=== PATIENT | male | born 1945 | race Caucasian/White ===

== ENCOUNTER 2019-02-26 12:00 | Observation (INO) | payer OTHER ==
[~2019-02-26] VITALS: Ht 188 cm; Wt 96.1 kg
[2019-03-05 11:42] LABS: CREATININE 0.9 mg/dL (0.5-1.5)
[2019-03-05 11:43] VITALS: BP 152/86
[2019-03-05] MEDS ORDERED: QUET25TA74 PO (12:12)
[2019-03-05] MEDS ORDERED: TYL3 PO (12:12)
[2019-03-06] VITALS (23 sets, daily range): BP systolic 119–173; BP diastolic 69–87
[2019-03-06] MEDS: CEFAZOLIN SODIUM 1 GM VIAL IVP SCH ×3 (06:00→18:13)
[2019-03-06] MEDS ORDERED: LACTATED RINGERS 1000ML 1,000 ML IV ONE ×2 (10:22→16:52)
[2019-03-06] MEDS ORDERED: ROCURONIUM 10MG/1ML SYR 10 MG/ML ML ONE (10:34)
[2019-03-06] MEDS ORDERED: PROPOFOL 10 MG/ML 20ML VIAL IV ONE (10:34)
[2019-03-06] MEDS ORDERED: LIDOCAINE PF 2% 5ML ABBOJECT ONE (10:34)
[2019-03-06] MEDS ORDERED: SUCCINYLCHOLINE 200MG/10ML SYR ONE (10:34)
[2019-03-06] MEDS ORDERED: FENTANYL CITRATE PF 50 MCG/1 ML 5ML AMP IV ONE (10:34)
[2019-03-06] MEDS ORDERED: ROPIVACAINE 0.5% 5MG/ML 30ML IJ ONE (10:35)
[2019-03-06] MEDS ORDERED: MIDAZOLAM HCL 1 MG/ML 2ML VIAL ONE (11:50)
[2019-03-06] MEDS ORDERED: SODIUM CHLORIDE 0.9% 10 ML VIAL ONE (12:20)
[2019-03-06] MEDS ORDERED: PHENYLEPHRINE HCL 10 MG/ML 1ML VIAL IV ONE (12:20)
[2019-03-06] MEDS ORDERED: EPHEDRINE SULFATE 50 MG/ML AMPULE ONE (12:26)
[2019-03-06] MEDS ORDERED: KETOROLAC TROMETHAMINE 30MG/ML ONE ×15 (13:36)
[2019-03-06] MEDS ORDERED: ONDANSETRON HCL 4 MG/2 ML VIAL ONE (13:37)
[2019-03-06 14:30] LABS: HEMATOCRIT 40.9 % (42-54)
--- NOTE | 2019-03-06 16:30 | NUR ---
DR. YADAV PATIENT REPORTS HE LIVES HOME ALONE AND HE NEEDS HELP AFTER DISCHARGE. PATIENT STATES THAT DR. YADAV WAS AWARE OF THIS. DR. TAYLOR' POST-OP ORDERS DO NOT SPECIFY DISCHARGE PLANNING. I CALLED DR. YADAV AND MD STATES "I FORGOT THIS PATIENT WAS ALSO A RECENT LEFT KNEE SURGERY, SO YES HE WILL NEED NURSING FACILITY FOR 3 DAYS, PREFERABLY [facility] SO THEY CAN TAKE PATIENT TO HIS FOLLOW-UP APPOINTMENT NEXT SUNDAY [03/10/19]."
--- NOTE | 2019-03-06 16:58 | NUR ---
CM NOTE DC PLAN TO SNF VS POLY TRAUMA UNIT? CALLED TO NURSING STATION BY PRIMARY RN; STATES PT IS ..INSISTANT.. THAT HE GO TO A SNF OR THE POLY TRAUMA UNIT IN [place] SURGERY TODAY , TKA 12 DAYS AGO BOTH LEFT SIDE, LIVES ALONE, STILL USING WALKER. ORDER OBTAINED BY YOLANDA FROM DR. YADAV FOR SNF,'PERFERABLY IN [facility] FOR FOLLOW UP APPT ON SUNDAY" PT ASKED THAT I TAKE DOWN THE INFO FOR NATURAL RESOURCES TECHNICIAN AT THE [facility] [place]. WILL RELAY TO CM IN AM FOLLOWS MARTINA AIDA, PHONE [phone] FAX [phone] MAIN NUMBER [phone] TRANSPORT BRIEFLY DISCUSSED; PT STATES THAT HE TALKED TO DR. YADAV PRIOR TO THE SURGER ABOUT THIS VERY THING; STATES THAT A REFERRAL FROM [facility] IS ALREADY APPROVED BUT WHEN HE TOURED HE DID NOT LIKE THE FACILITY. - WOULD LIKE TO TRY TO GET INTO THE POLYTRAUMA UNIT
[2019-03-06] MEDS ORDERED: PROMETHAZINE HCL 25 MG/ML 1ML AMPULE IM PRN (17:15)
[2019-03-06] MEDS ORDERED: BISACODYL 10 MG SUPP.RECT RC PRN (17:15)
[2019-03-06] MEDS ORDERED: DEXTROSE 5%-LACTATED RINGERS 1,000 ML IV SCH (17:15)
[2019-03-06] MEDS ORDERED: MAGNESIUM HYDROXIDE 30 ML/UDCUP PO PRN (17:15)
[2019-03-06] MEDS ORDERED: MORPHINE SULFATE 5 MG/ML VIAL IM PRN (17:15)
[2019-03-06] MEDS ORDERED: ACETAMINOPHEN 325 MG TAB PO PRN ×2 (18:15→19:30)
[2019-03-06 18:46] LABS: HEMATOCRIT 41.9 % (42-54)
[2019-03-06] MEDS ORDERED: HYDROCODONE/ACETAMINOPHEN 5/325 MG TAB PO PRN (19:30)
[2019-03-06] MEDS ORDERED: ONDANSETRON HCL 4 MG/2 ML VIAL IV PRN (19:30)
[2019-03-06] MEDS ORDERED: QUETIAPINE FUMARATE 25 MG TAB PO SCH (21:00)
[2019-03-06] MEDS: FAMOTIDINE 20MG TAB 20 MG TAB PO SCH (21:02)
[2019-03-06] MEDS: HYDROCODONE/ACETAMINOPHEN 5/325 MG TAB PO PRN ×2 (21:19→22:21)
[2019-03-07 01:22] LABS: HEMATOCRIT 38.9 % (42-54)
[2019-03-07] MEDS: CEFAZOLIN SODIUM 1 GM VIAL IVP SCH ×2 (01:36→09:05)
[2019-03-07] MEDS ORDERED: KETOROLAC TROMETHAMINE 30MG/ML ONE (03:40)
--- NOTE | 2019-03-07 03:42 | NUR ---
pain c/o pain to left shoulder , spoke to hospitalist deputy insurance commissioner gutierrez carrasco, with orders, toradol 30 mg ivp given slowly, ice packs to left shoulder , abduction pillow in place, ble teds and scds in place, voiding per urinal clear yellow urine
[2019-03-07] MEDS: KETOROLAC TROMETHAMINE 30MG/ML IV SCH ×2 (04:00→04:11)
[2019-03-07 04:07] VITALS: BP 161/88
[2019-03-07 04:08] VITALS: BP 143/70
[2019-03-07] MEDS: HYDROCODONE/ACETAMINOPHEN 5/325 MG TAB PO PRN ×5 (04:48→17:22)
--- NOTE | 2019-03-07 05:15 | NUR ---
labs patient refused blood drawn this time, patient states "i dont knee my hemoglobin checked"explain to patient importance, continue to refuse
--- NOTE | 2019-03-07 06:21 | NUR ---
labs explain to patient importance of blood work as, patient continue to refuse, when doctor comes i will talk to hime
[2019-03-07] MEDS ORDERED: MORPHINE SULFATE 10 MG/ML 1ML VIAL IM PRN (06:59)
[2019-03-07 08:25] VITALS: BP 129/70
[2019-03-07] MEDS: FAMOTIDINE 20MG TAB 20 MG TAB PO SCH (09:05)
--- NOTE | 2019-03-07 09:16 | NUR ---
Patient refused to initiate Physical Therapy this am, states that its his body and don't want to start PT until Dr. Charlton comes to check on him.Patient also stated that he's going to Facility today and they can start Physical Therapy.Patient dont want to utilize a cane, he wants to use his rollator. Explained to patient that therapist is just following MD's order to use cane cause no weight to left arm.Notified JAMEL Lwa and Sparkle,Pleater. Addendum: 03/07/19 at 0925 by FLORENTIN VITAL, PT PT Amended: Links added.
--- NOTE | 2019-03-07 10:12 | NUR ---
REFUSAL PATIENT IS REFUSING AM LABS, TEMP, AND INITIAL PT. EXPLAINED IMPORTANCE OF FOLLOWING MD ORDERS AND PHYSICAL THERAPIST, STATES HE NEEDS TO HEAR IT FROM DR YADAV FIRST. PLACED CALL TO DR LEIF MD STATES WILL SEE PATIENT IN AFTERNOON, STATES "ASK HIM TO FOLLOW MY ORDERS EXACTLY WRITTEN AND I WILL SEE HIM THIS AFTERNOON, HE WILL BE GOING TO SNF". INFORMED PATIENT OF MD RESPONSE, NO INDICATION OF LEARNING.
--- NOTE | 2019-03-07 10:55 | NUR ---
PEACE PLAY VISITED WITH PATIENT. PATIENT LIVES ALONE. SAYS HE STAYS IN [facility]OTEL ROOMS. PATIENT TO GO BACK THERE ONCE BETTER. SAYS HIS STUFF IS THERE. PATIENT STATES HE HAS A WALKER AND BSC. DOES NOT FEEL SAFE TO RETURN HOME. NO HELP. PATIENT SAYS HE SPOKE TO MARTINA TANISHA AT THE POLYTRAUMA UNIT IN [place]. MARTINA GARAY - [phone] FAX [phone]. MAIN NUMBER [phone] OTHER NUMBER THAT SEEMS TO GO TO TANISHA VOICE MAIL IS [phone]. WENT TO PATIENT ROOM TO SPEAK TO PATIENT REFUSING THERAPY. PATIENT SIGNED NEFTALI FOR POLY UNIT. WANTED ME TO CALL TANISHA FROM ROOM VERY AGITATED COMPLIED WITH REQUEST. CALLED ALL THE NUMBERS AND LEFT MESSAGES WHILE IN FRONT OF PATIENT BECAUSE HE DID NOT BELIEVE THAT I WOULD CALL. MRS GARAY CALLED BACK GAVE STANDARD LIST FOR PACKET RE ITERATED THAT THEY NEED PT OT TO SEE LEVEL OF FUNCTION. HAD REP SPEAK DIRECTLY WITH PATIENT SOT THAT HE KNEW WHAT WAS BEING SAID. CALLED DR. YADAV TO SEE IF I COULD GET AN ORDER FOR REHAB UNIT. DR. YADAV VERY UPSET SAID THAT WE KEEP CALLING HIM REGARDING THIS PATIENT HE LEFT ORDERS AND WE ARE TO FOLLOW THEM. EXPLAINED THAT PATIENT WANTS POLY UNIT IN [place]. SAID NO HE GAVE ORDER FOR SNF FOR 3 DAYS AND THAT HE NEEDS TO SEE PATIENT IN HIS OFFICE TO MAKE SURE INCISION IS GOOD AND THAT THERAPY IS DONE RIGHT. LET NURSE AND CAN TESTER FAYE KNOW OF SITUATION AND PHONE CALL EXPLAINED THAT I AM UNABLE TO PROCEED. PATIENT WANTS POLY UNIT MD REFUSING TO GIVE ORDER. WITH OUT ORDER CAN NOT SEED INFORMATION. I ALSO LET PATIENT KNOW ABOUT NEEDING MD ORDER AND THAT I DID NOT HAVE ONE AT THIS TIME. SAID I DID NOT NEED ORDER FROM DR. YADAV THE [facility] IS IN CHARGE AND THEY ARE WHO I SPEAK TO. EXPLAINED THAT WHILE IN HOSPITAL PATIENT IS UNDER DR. TAYLOR CARE AND CAN NOT DO ANYTHING WITH OUT HIS ORDER. PATIENT NOT HAPPY. PER FAYE WILL CALL DR. YADAV TO SEE IF HE CAN GET ORDER. Addendum: 03/07/19 at 1106 by SHARI STILL RN CM Amended: Links added.
--- NOTE | 2019-03-07 11:30 | NUR ---
cm note pt requested to speak to CM in charge, met with patient and answered questions regarding dc plan, and informed of need for his consent to send referral to snf, as ordered by dr christian. pt states he does not wish to give consent for referral due to wishes to go to [place] [facility], states his VA can cover it. informed that md was called by and he states he is only giving orders for snf level of care at [facility]. pt states he will speak to md first,
--- NOTE | 2019-03-07 13:00 | NUR ---
cm note Dr Charlton here and spoke to pt. and per dr charlton pt now agreeable to snf at [facility], met with patient and states he is agreeable to snf at [facility]. choice letter and NEFTALI obtained. informed pt and dr Charlton that referral would be made by CM and await approval. tori DURÁN. she will send referral.
[2019-03-07 16:40] VITALS: BP 156/86
--- NOTE | 2019-03-07 16:59 | NUR ---
PEACE PARKING METER INSTALLER FROM [facility] VISITED AND ACCEPTED. PATIENT PASRR DONE AND SENT. EMS SET UP IN CASE PATIENT NOT ABLE TO AMBULATE. SPOKE TO GREGG AT THE [place]. NO PRE AUTH INITIATED FOR PATIENT FOR POLY TRAUMA UNIT. SAID THEY WOULD HAVE SENT REFERRAL TO LOCAL AREA BEFORE SENDING OUT OF AREA. [place] PLACE AVAILABLE FOR [place] AT THIS TIME IS [facility] IN [place]. SAID THAT [facility] DID RECEIVE A PHONE CALL TO [place] BUT THAT HE DID NOT HAVE ANYTHING INITIATED SINCE THERE IS A PROPER WAY FOR REFERRALS. LET NURSE KNOW OF ACCEPTANCE SHOULD DISCHARGE TODAY. Addendum: 03/07/19 at 1702 by SHARI STILL RN CM Amended: Links added.
--- NOTE | 2019-03-07 17:00 | NUR ---
DC REPORT GIVEN TO WESTON MOLINA AT [facility], IV CATHETER REMOVED CATHETER INTACT NO BLEEDING, DC INTRUCTIONS GIVEN TO PATIENT USING TEACHBACH TECHNIQUE, WOUND CARE TO LT SHOULDER DONE USING ASEPTIC TECHNIQUE, WOUND WELL APPROXIMATED, NO S/S INFECTION, SUTURES INTACT. NOTED FLORENCE WOUND WITH EXCORIATION ON TAPE CASTILLO, OFFERED SKIN PREP TO MINIMIZE SKIN IRRITATION AND TAPING SITE, PATIENT REFUSED STATES, DR YADAV WILL LOOK AT IT ON SUNDAY. PATIENT TRASNPORTED IN WC BY [facility] STAFF
== END 2019-03-07 19:48 ==
LOC: EDSTATUS 12:00 → EDSEX 03-05 08:00 → DAHIP 03-06 09:25 → 4BH 03-06 14:20
DX: M75.102 Unspecified rotator cuff tear or rupture of left shoulder, not specified as traumatic (principal); H57.9 Unspecified disorder of eye and adnexa; M75.42 Impingement syndrome of left shoulder; Z79.899 Other long term (current) drug therapy
CPT/HCPCS: 23120; 23130; 23412; 24110; 36415 ×3; 82565; 85014 ×3; 85018 ×3; 88304 ×2; 88311 ×2; 94760; 96372 ×2; 96374; 96376; 97039; 97116 ×2; 97161; A4218 ×3; A4600; A4606; A4930; A6223; C1713 ×2; G0378 ×23; G8978; G8979; G8980; G8981; G8982; G8983; J0330; J0690 ×4; J1885 ×2; J2001; J2250; J2270; J2370; J2405; J2704; J2795; J3010; J3490; J7030; J7120 ×2

== ENCOUNTER 2019-03-11 04:02 | Emergency (ER) | payer OTHER ==
[~2019-03-11 04:02] MED LIST: QUET25TA74 PO; TYL3 PO
[2019-03-11] MEDS ORDERED: QUETIAPINE FUMARATE 25 MG TAB ONE (04:58)
== END 2019-03-11 11:42 | disposition home or self-care (01) ==
LOC: EDH 04:02
DX: G47.00 Insomnia, unspecified (principal); I10 Essential (primary) hypertension; K21.9 Gastro-esophageal reflux disease without esophagitis; Z79.899 Other long term (current) drug therapy; Z87.891 Personal history of nicotine dependence